=== PATIENT | male | born 1970 | race Caucasian/White ===

== ENCOUNTER 2019-06-01 09:22 | Emergency (ER) | payer OTHER ==
[~2019-06-01] VITALS: Ht 167.6 cm; Wt 68.0 kg
[2019-06-01 09:29] VITALS: Ht 167.6 cm; Wt 68.0 kg
[2019-06-01 11:29] VITALS: BP 104/60
== END 2019-06-01 11:55 | disposition home or self-care (01) ==
LOC: ED 09:22
DX: S70.11XA Contusion of right thigh, initial encounter (principal); S80.211A Abrasion, right knee, initial encounter; F17.210 Nicotine dependence, cigarettes, uncomplicated; W17.89XA Other fall from one level to another, initial encounter; Y93.89 Activity, other specified; Y92.89 Other specified places as the place of occurrence of the external cause; Y99.0 Civilian activity done for income or pay
CPT/HCPCS: 90715; 99406